=== PATIENT | male | born 1990 | race Caucasian/White ===

== ENCOUNTER 2020-10-04 20:35 | Emergency (ER) | payer OTHER, SELFPAY ==
[2020-10-04 20:41] VITALS: BP 118/62; PULSE 52; RESP 18; TEMP 36.1; O2SAT 100
[2020-10-04 21:25] VITALS: BP 114/74; PULSE 54; RESP 18; TEMP 36.3; O2SAT 100
--- NOTE | 2020-10-04 22:17 | ED.DENTAL ---
HPI - Dental/Oral General Chief complaint: Dental/Oral Stated complaint: tooth ache x 1.5 mos Time Seen by Provider: 10/04/20 21:27 Source: patient Mode of arrival: ambulatory Limitations: no limitations History of Present Illness HPI Narrative: This is a 30-year-old male that presents to the emergency department for toothache worsening over the last week. Reports he has a broken tooth. Reports he has been having pain in the area. He has been taking [id number] medications with little relief. Denies fever, erythema, edema. MD Complaint: tooth pain Location: Tooth # (18) Related Data Allergies Allergy/AdvReac Type Severity Reaction Status Date / Time No Known Allergies Allergy Verified 10/04/20 21:30 Review of Systems Review of Systems: Narrative: CONSTITUTIONAL: Denies fever ENT: Reports dentalgia All systems reviewed & are unremarkable except as noted in HPI and below PMFSH Past Medical History Medical History (Updated 10/04/20 @ 22:20 by Clara Haynes PA-C) No active medical problems Social History Social History (Updated 10/04/20 @ 22:19 by Clara Haynes PA-C) Smoking status: Former smoker Exam Narrative: Exam Narrative: GENERAL: Well-appearing, well-nourished, and in no acute distress. HEAD: Normocephalic, atraumatic. EYES: EOMI. ENT: Nares clear, no rhinorrhea or epistaxis. Mucous membranes moist. Oropharynx without tonsillar hypertrophy exudate or other lesions. Bilateral TMs pearly martinez non-bulging. Tooth #18 is cracked, no surrounding erythema or fluctuance to suggest abscess. Floor mouth is soft. No trismus NECK: Supple. No adenopathy or masses. CHEST: Clear to auscultation. No respiratory distress. No wheezes rales or rhonchi HEART: Regular rate and rhythm. No murmur heard. Normal peripheral pulses. EXTREMITIES: Normal range of motion. No edema. SKIN: Warm, dry, no rash. NEURO: No focal deficits. Alert and oriented x3. PSYCH: Normal mood and affect Course Vital Signs Vital signs: Vital Signs Temperature 96.9 F L 10/04/20 20:41 Pulse Rate 52 L 10/04/20 20:41 Respiratory Rate 18 10/04/20 20:41 Blood Pressure 118/62 10/04/20 20:41 Pulse Oximetry 100 10/04/20 20:41 Temperature 97.4 F L 10/04/20 21:25 Pulse Rate 54 L 10/04/20 21:25 Respiratory Rate 18 10/04/20 21:25 Blood Pressure 114/74 10/04/20 21:25 Pulse Oximetry 100 10/04/20 21:25 MDM - Dental/Oral MDM Narrative Medical decision making narrative: Patient presents to the emergency department for toothache. He is afebrile and nontoxic-appearing. No evidence of abscess on exam. Patient will be started on oral antibiotics and is to follow-up with a dentist. He was given warnings to return to the ER Critical Care Time Critical Care Time Critical Care Time: No Discharge Plan Discharge Clinical Impression: Toothache Patient Disposition: Home, Self-Care Condition: Stable Instructions: Antibiotic Form, Toothache (ED) Additional Instructions: Return to the Emergency Department if you experience fever >101, increasing swelling and redness of your tooth, or any other symptoms that are concerning to you Take antibiotic as prescribed. Tylenol or Ibuprofen as needed for pain. Follow up with a dentist Prescriptions: New amoxicillin-pot clavulanate 875-125 mg tablet 1 tablet PO Q12H 7 Days Qty: 14 RF: 0 Follow-up/Referrals: PHYSICIAN,METAL [employer]IM ERECTOR [Primary Care Provider] -
[2020-10-04] MEDS: AMOXICILLIN/CLAVULANATE K 875-125 MG TAB 1 TABLET PO (22:32)
== END 2020-10-04 22:36 | disposition home or self-care (01) ==
PROVIDERS: Emergency Provider Emergency Medicine
DX: K08.89 Other specified disorders of teeth and supporting structures (principal)
CPT/HCPCS: 99283; A9270